=== PATIENT | female | born 1990 | race Caucasian/White ===

== ENCOUNTER 2023-07-03 09:00 | Emergency (ER) | payer BC, MEDICAID ==
[~2023-07-03] VITALS: Ht 162.6 cm; Wt 68.3 kg
[2023-07-03 09:04] VITALS: TEMP 97.7
[2023-07-03] MEDS ORDERED: epiNEPHrine 1 mg/ml inj IM STA (09:34)
[2023-07-03] MEDS ORDERED: dexamethasone 4mg tablet PO ONE (09:35)
[2023-07-03] MEDS ORDERED: diphenhydrAMINE 50 mg/ml inj IM ONE (09:35)
[2023-07-03] MEDS ORDERED: famotidine 20mg tablet PO ONE (09:35)
[2023-07-03] MEDS ORDERED: PRED20TA PO (10:28)
[2023-07-03 10:34] VITALS: BP 105/64; PULSE 78; RESP 16; O2SAT 97
== END 2023-07-03 10:37 | disposition home or self-care (01) ==
LOC: ER 09:01
DX: T78.40XA Allergy, unspecified, initial encounter (principal); Z98.890 Other specified postprocedural states; Z79.899 Other long term (current) drug therapy; X58.XXXA Exposure to other specified factors, initial encounter; Y93.89 Activity, other specified; Y92.89 Other specified places as the place of occurrence of the external cause; Y99.8 Other external cause status
CPT/HCPCS: 96372; 99284; J0171; J1200

== ENCOUNTER 2023-07-23 08:23 | Outpatient (CLI) | payer BC, MEDICAID ==
[2023-07-23 09:37] LABS: FREE T4 (FREE THYROXINE) 0.89 NG/DL (0.73-1.40); THYROID STIMULATING HORMONE 0.75 ulU/ml (0.34-4.50)
[2023-07-24 11:30] LABS: TESTOSTERONE, SERUM 11 ng/dL (8-60)
[2023-08-03 13:41] LABS: TESTOSTERONE, FREE, DIRECT 1.4 pg/mL (0.0-4.2)
== END 2023-07-23 23:59 | disposition home or self-care (01) ==
LOC: LAB 08:23
PROVIDERS: ATTEND Specialist
DX: L68.9 Hypertrichosis, unspecified (principal)
CPT/HCPCS: 36415; 82670; 84402; 84403; 84439; 84443